=== PATIENT | female | born 1980 | race Caucasian/White ===

== ENCOUNTER → 2016-07-10 | Outpatient (CLI) | payer OTHER ==
[~2016-07-10] MED LIST: ALBUTEROL MININEB NEB; ERYTHROMYCIN B500 MG PO; HYDROCODON-ACE1 EAC9 PO; HYDROXYZINE PAM25 M1 PO; KEFLEX500 MG PO; MEDROL4 MG/DOSE- PO; NIFEREX-150150 MG PO; PREDNISONE10 MG/DOSE PO; TRAVEL-EASE25 M1 PO; VENTOLIN5 MG/ML IH; VOLTAREN75 MG PO; WELLBUTRIN PO; ZITHROMAX PO; ZYRTEC-D T1 TAB.SR1 PO
--- NOTE | ~2016-07-10 | CT5 ---
[facility] A Service [facility] RADIOLOGY TEXT RESULTS PATIENT: AMANUEL BELTRAN LOCATION: [facility] : 78 UNIT #: [id number] AGE: [address]: BRETT MENA SEX: F ORDER DR: [id number] [place] [id number] O MR#: [id number] Acc #: [id number] NAME: AMANUEL BELTRAN. : 1980 SEX: F STUDY DATE/TIME: 07/10/2016 12:58 UNIT: [facility] ROOM: STUDY DESCRIPTION: CT Abdomen W Cont Attending Physician: Brett Mena Aprn Referring Physician: Brett Mena Aprn Ordering Physician: Brett Mena Aprn [facility] This report is preliminary unless electronic signature is present. EXAM CT of the abdomen with contrast. INDICATION Right-sided upper abdominal pain. Palpable abnormality right side of abdomen. TECHNIQUE CT of the abdomen was performed following the administration of oral and IV contrast. Coronal and sagittal reformatted images were obtained. This CT exam was performed with one or more of the following radiation dose reduction techniques: automatic exposure control, adjustment of mA and/or kV according to patient size, and iterative reconstruction. COMPARISON 11/13/2013 FINDINGS The lung bases are clear. The liver is unremarkable. Cholecystectomy. Spleen is unremarkable. Kidneys are unremarkable. The adrenal glands and pancreas are unremarkable. No evidence of any mass. There is a small fat-containing right anterior ventral abdominal wall hernia. Bone windows are unremarkable. IMPRESSION 1. Cholecystectomy. 2. Small fat-containing right anterior abdominal wall hernia. 3. No evidence of mass. [facility] A Service of [facility] RADIOLOGY TEXT RESULTS PATIENT: AMANUEL BELTRAN LOCATION: [facility] : 78 UNIT #: [id number] AGE: [address]: BRETT MENA SEX: F ORDER DR: Dictated by... Noah R. Frazier, M.D. THIS IS AN ELECTRONICALLY VERIFIED REPORT Noah Frazier M.D. at 07/13/2016 7:37 AM POOJA/serjio TD: 07/10/2016 17:05 JOB #: [id number] MEDICAL IMAGING REPORT Page 1 of 1
== END | disposition home or self-care (01) ==
LOC: SCT 12:30
DX: R10.84 Generalized abdominal pain (principal); K43.9 Ventral hernia without obstruction or gangrene; Z90.49 Acquired absence of other specified parts of digestive tract
CPT/HCPCS: 74160; Q9967

== ENCOUNTER → 2016-08-31 | Day surgery (SDC) | payer OTHER ==
--- NOTE | ~2016-08-31 | OR ---
Unit #: [id number] #: [id number] Patient: AMANUEL BELTRAN [id number] [address] [address] [id number] O MR#: [id number] NAME: AMANUEL BELTRAN. ROOM: Date of Procedure: 08/31/2016 Admission Date: 08/31/2016 Surgeon: James Armendariz M.D. : 1980 Attending Physician: James Armendariz M.D. Primary Care Physician: [facility] [place] OPERATIVE REPORT PREOPERATIVE DIAGNOSIS Incisional hernia. POSTOPERATIVE DIAGNOSIS 2 cm incarcerated incisional hernia. PROCEDURE PERFORMED Laparoscopic ventral hernia repair of incarcerated incisional hernia. ANIMAL SHELTER CLERK Andreas Logan M.D. ANESTHESIA General endotracheal anesthesia. ESTIMATED BLOOD LOSS Minimal. IV FLUIDS 800 crystalloid. COMPLICATIONS None. INDICATIONS FOR PROCEDURE The patient is a 36-year-old, who presents with incarcerated hernia. DESCRIPTION OF PROCEDURE The patient was taken to the operating theater and placed in supine position. General anesthesia was induced. The abdomen was prepped and draped. A 5-mm Optiview trocar was placed in the left upper quadrant without difficulty. The abdomen was insufflated to 15 mmHg with CO2. Under direct vision, I placed a left lower quadrant 10 mm. General inspection of the abdomen revealed incarcerated incisional hernia at the port site in the right upper quadrant and had an incarcerated omentum. I reduced this and then placed a 6-inch Ventralight [place]apai-apache into position. This was held in place with single-stranded Vicryl sutures and delivered transcutaneous. I then secured this with a SorbaFix Tacker with each tack being 1.5 cm from previous tack. This covered the defect by at least 5 cm in all circumference. Hemostasis was adequate. I removed the ports under vision with no evidence of abdominal hemorrhage. The wounds were closed with 4-0 Vicryl. The sutures were cut at skin level. The patient Unit #: [id number] #: [id number] Patient: AMANUEL BELTRAN tolerated the procedure well and sent to recovery room in good condition. Dictated by... Basilia Rivera/maisha TD: 08/31/2016 16:57 JOB #: [id number] OPERATIVE REPORT Page 1 of 1 X James Armendariz MD PROCEDURE OPERATIVE NOTE
== END | disposition home or self-care (01) ==
LOC: CSUR 07:30
DX: K43.0 Incisional hernia with obstruction, without gangrene (principal); J45.909 Unspecified asthma, uncomplicated; F32.9 Major depressive disorder, single episode, unspecified; Z88.0 Allergy status to penicillin; Z88.8 Allergy status to other drugs, medicaments and biological substances; Z91.040 Latex allergy status; Z91.041 Radiographic dye allergy status; Z90.49 Acquired absence of other specified parts of digestive tract; Z98.890 Other specified postprocedural states; Z82.49 Family history of ischemic heart disease and other diseases of the circulatory system; Z83.3 Family history of diabetes mellitus
CPT/HCPCS: 84703; C1781; J0131; J0330; J1100; J1644; J1885; J2250; J2405; J3010; J3370